=== PATIENT | male | born 1965 | race Caucasian/White ===

== ENCOUNTER 2020-08-02 15:17 | Inpatient (IN) | payer BC ==
[~2020-08-02] VITALS: Ht 193 cm; Wt 132.5 kg
--- NOTE | 2020-08-02 15:29 | NUR ---
PATIENT BIB EMS WITH CHIEF C/O SOB AND BODY ACHES X3 DAYS. PER EMS PATIENT CAMPING WITH FAMILY, FROM [place]. TRANSFER FROM [facility], 12-LEAD NEGATIVE. NO INTERVENTIONS EN ROUTE, VSS. PATIENT CONNECTED TO MONITOR, VSS, AT BEDSIDE, DENIES CHEST PAIN, REPORTS COUGHING UP GREEN PHLEGM THIS MORNING. CALL LIGHT WITHIN REACH.
[2020-08-02] MEDS ORDERED: SODIUM CHLORIDE FLUSH 10ML SYR IVF ONE (15:30)
--- NOTE | 2020-08-02 15:33 | NUR ---
ERMD AT BEDSIDE FOR EVALUATION.
[2020-08-02 15:39] LABS: BASOPHILS % (AUTO) 1 % (0-1); EOSINOPHILS % (AUTO) 3 % (1-7); LYMPHOCYTES % (AUTO) 11 % (22-44); MEAN CORPUSCULAR HGB CONC 33.7 g/dL (33.2-36.2); MEAN PLATELET VOLUME 7.3 fL (7.4-10.4); MONOCYTES % (AUTO) 9 % (2-9); NEUTROPHILS % (AUTO) 76 % (42-75); PLATELET COUNT 250 x10^3/uL (130-400); RED BLOOD COUNT 4.57 x10^6/uL (4.38-5.82); RED CELL DISTRIBUTION WIDTH 13.3 % (9.4-14.8)
[2020-08-02 15:52] LABS: ALANINE AMINOTRANSFERASE 26 U/L (12-78); ALBUMIN 3.2 g/dL (3.4-5.0); ANION GAP 6 mmol/L (5-15); CALCIUM 8.5 mg/dL (8.5-10.1); CHLORIDE 106 mmol/L (98-107); CREATININE 0.92 mg/dL (0.7-1.3)
[2020-08-02 15:56] LABS: ALKALINE PHOSPHATASE 69 U/L (45-117); BILIRUBIN,TOTAL 0.6 mg/dL (0.2-1.0); TOTAL PROTEIN 6.9 g/dL (6.4-8.2); TROPONIN I 0.088 ng/mL (0.000-0.045)
[2020-08-02] MEDS ORDERED: ALBUTEROL SULFATE 2.5 MG/3 ML NPPB ONE (16:00)
[2020-08-02 16:05] LABS: INTERNATIONAL NORMALIZED RATIO 1.02 (0.93-1.1); PROTHROMBIN TIME 10.9 Seconds (9.6-11.5)
[2020-08-02] MEDS ORDERED: ALBUTEROL SULFATE 2.5 MG/3 ML ONE (16:20)
--- NOTE | 2020-08-02 16:25 | NUR ---
BREATHING TREATMENT STARTED.
--- NOTE | 2020-08-02 16:32 | NUR ---
REPORT TO RADHA MOSHER FOR TRANSFER OF PATIENT CARE.
--- NOTE | 2020-08-02 16:49 | NUR ---
PATIENT TRANSFERRED TO CARDIAC TELEMETRY VIA GURNEY IN STABLE CONDITION WITH FENDER MECHANIC APPRENTICE. ALL PATIENT BELONGINGS GATHERED AND TAKEN TO FLOOR WITH PATIENT.
[2020-08-02 17:00] VITALS: BP 164/86
[2020-08-02] MEDS ORDERED: morphine SULFATE 10 MG/ML, 1ML IV PRN (17:00)
[2020-08-02] MEDS ORDERED: NITROGLYCERIN 0.4 MG/SPRAY SL PRN (17:00)
[2020-08-02] MEDS ORDERED: NITROGLYCERIN 0.4 MG BOTTLE (25 TABS) SL PRN ×2 (17:00)
[2020-08-02] MEDS ORDERED: ONDANSETRON ODT 4 MG PO PRN (17:00)
[2020-08-02] MEDS ORDERED: LABETALOL 5MG/ML, 20ML IVPush PRN (17:00)
[2020-08-02] MEDS ORDERED: morphine SULFATE 10 MG/ML, 1ML IVPush PRN (17:00)
[2020-08-02] MEDS ORDERED: KETOROLAC 30 MG/1 ML IV PRN (17:00)
[2020-08-02] MEDS ORDERED: ONDANSETRON 2MG/ML, 2ML IVPush PRN (17:00)
[2020-08-02] MEDS: DOXYCYCLINE 100 MG in DEXTROSE 5% 250 ML IV SCH (17:14)
[2020-08-02] MEDS ORDERED: SIMV20TA19 PO (17:26)
[2020-08-02] MEDS ORDERED: LOSA25TA25 PO (17:26)
[2020-08-02 17:46] LABS: HCT (SEDRATE) 40.2 % (39.2-51.8)
[2020-08-02 18:02] LABS: CHOL/HDL RATIO 2.5; CHOLESTEROL, TOTAL 148 mg/dL (140-239); HDL CHOL % 41 % (26-37); HDL CHOLESTEROL (DIRECT) 60 mg/dL (40-60); LDL CHOLESTEROL,CALCULATED 70 mg/dL (54-169); LDL/HDL RATIO 1.2 (0.5-3.0); TRIGLYCERIDES 88 mg/dL (50-200); TROPONIN I 0.102 ng/mL (0.000-0.045); VLDL CHOLESTEROL 18 mg/dL (0-25)
[2020-08-02] MEDS: LACTATED RINGERS 1,000 ML IV SCH (19:30)
[2020-08-02 21:07] VITALS: BP 127/71
[2020-08-02] MEDS: SODIUM CHLORIDE FLUSH 10ML SYR IVF SCH (21:11)
[2020-08-02 21:21] LABS: TROPONIN I 0.204 ng/mL (0.000-0.045)
[2020-08-03 01:54] VITALS: BP 153/91
[2020-08-03 04:42] LABS: MEAN CORPUSCULAR HGB CONC 35.1 g/dL (33.2-36.2); MEAN PLATELET VOLUME 7.8 fL (7.4-10.4); PLATELET COUNT 217 x10^3/uL (130-400); RED BLOOD COUNT 4.28 x10^6/uL (4.38-5.82); RED CELL DISTRIBUTION WIDTH 13.2 % (9.4-14.8)
[2020-08-03 04:43] LABS: ANION GAP 9 mmol/L (5-15); CALCIUM 8.3 mg/dL (8.5-10.1); CHLORIDE 104 mmol/L (98-107)
[2020-08-03 05:41] LABS: BAND#(MANUAL) 0.11 x10^3/uL; BANDS%(MANUAL) 1 % (0-7); EOS#(MANUAL) 0.32 x10^3/uL (0.0-0.4); EOS% (MANUAL) 3 % (1-7); LYMPH#(MANUAL) 1.38 x10^3/uL (1-3.4); LYMPHS% (MANUAL) 13 % (22-44); MONOS#(MANUAL) 0.42 x10^3/uL (0.3-2.7); MONOS% (MANUAL) 4 % (2-9); REACTIVE LYMPHS # (MANUAL) 0.21 x10^3/uL (0-0); REACTIVE LYMPHS % (MANUAL) 2 % (0-0); SEG#(MANUAL) 8.16 x10^3/uL (1.8-6.8); SEGS% (MANUAL) 77 % (42-75)
[2020-08-03 05:42] LABS: <PLATELET ESTIMATE> ADEQUATE; <PLT MORPHOLOGY> NORMAL PLT MORPH; <RBC MORPHOLOGY> NORMAL
[2020-08-03] MEDS: ASPIRIN 325 MG TABLET EC PO SCH (06:10)
[2020-08-03] MEDS: DOXYCYCLINE 100 MG in DEXTROSE 5% 250 ML IV SCH ×2 (06:10→17:36)
[2020-08-03 06:27] VITALS: BP 144/78
[2020-08-03] MEDS ORDERED: HEPARIN 25,000 UNITS/250ML PMX 250 ML IV PRN (07:30)
[2020-08-03] MEDS ORDERED: HEPARIN 5,000 UNITS/ML, 1ML IV PRN (07:30)
[2020-08-03] MEDS ORDERED: HEPARIN 5,000 UNITS/ML, 1ML IV ONE (07:30)
[2020-08-03 09:35] VITALS: BP 145/78
[2020-08-03] MEDS: SIMVASTATIN 20 MG TABLET PO SCH ×2 (09:36→20:13)
[2020-08-03] MEDS: LOSARTAN 50MG TABLET PO SCH (09:36)
[2020-08-03] MEDS: SODIUM CHLORIDE FLUSH 10ML SYR IVF SCH ×2 (09:37→20:37)
[2020-08-03] MEDS ORDERED: REGADENOSON 0.4 MG/5 ML SYRINGE ONE (10:10)
[2020-08-03] MEDS: ACETAMINOPHEN 325 MG TABLET PO PRN ×2 (11:59→20:13)
[2020-08-03] MEDS: LACTATED RINGERS 1,000 ML IV SCH (13:11)
[2020-08-03] MEDS: KETOROLAC 30 MG/1 ML IV SCH ×2 (15:33→20:25)
[2020-08-03 15:52] VITALS: BP 142/87
[2020-08-03 20:04] VITALS: BP 178/111
[2020-08-03 22:37] VITALS: BP 128/77
[2020-08-03] MEDS: BENZONATATE 100 MG CAPSULE PO PRN (22:41)
[2020-08-04 02:35] VITALS: BP 153/91
[2020-08-04] MEDS: KETOROLAC 30 MG/1 ML IV SCH ×4 (02:39→20:12)
[2020-08-04] MEDS: LACTATED RINGERS 1,000 ML IV SCH (02:39)
[2020-08-04 05:10] LABS: ANION GAP 9 mmol/L (5-15); CALCIUM 8.7 mg/dL (8.5-10.1); CHLORIDE 104 mmol/L (98-107); CREATININE 0.93 mg/dL (0.7-1.3)
[2020-08-04 05:11] LABS: BASOPHILS % (AUTO) 1 % (0-1); EOSINOPHILS % (AUTO) 3 % (1-7); LYMPHOCYTES % (AUTO) 11 % (22-44); MEAN CORPUSCULAR HEMOGLOBIN 29.7 pg (27.5-34.5); MEAN CORPUSCULAR HGB CONC 34.7 g/dL (33.2-36.2); MEAN PLATELET VOLUME 8.8 fL (7.4-10.4); MONOCYTES % (AUTO) 8 % (2-9); NEUTROPHILS % (AUTO) 77 % (42-75); PLATELET COUNT 235 x10^3/uL (130-400); RED BLOOD COUNT 4.04 x10^6/uL (4.38-5.82); RED CELL DISTRIBUTION WIDTH 13.3 % (9.4-14.8)
[2020-08-04] MEDS: DOXYCYCLINE 100 MG in DEXTROSE 5% 250 ML IV SCH ×2 (05:27→17:59)
[2020-08-04] MEDS: ASPIRIN 325 MG TABLET EC PO SCH (05:27)
[2020-08-04 09:15] VITALS: BP 155/83
[2020-08-04] MEDS: BENZONATATE 100 MG CAPSULE PO PRN ×2 (09:16→20:12)
[2020-08-04] MEDS: LOSARTAN 50MG TABLET PO SCH (09:16)
[2020-08-04] MEDS: SODIUM CHLORIDE FLUSH 10ML SYR IVF SCH ×2 (09:16→21:00)
[2020-08-04] MEDS ORDERED: IBUPROFEN 200 MG TABLET PO PRN (10:00)
[2020-08-04] MEDS: ENOXAPARIN 40 MG/0.4 ML SQ SCH (11:34)
[2020-08-04 12:53] VITALS: BP 138/84
[2020-08-04 13:31] LABS: MICROSCOPIC INDICATED
[2020-08-04] MEDS: GUAIFENESIN/DM 200-20MG, 10ML UDC PO PRN (14:44)
[2020-08-04 17:58] VITALS: BP 111/72
[2020-08-04] MEDS: METOPROLOL TARTRATE 25 MG TAB PO SCH (17:59)
[2020-08-04 19:45] VITALS: BP 103/69
[2020-08-04] MEDS: ALUMINUM/MAG/SIMETHICONE 30 ML UDC PO PRN (20:12)
[2020-08-04] MEDS: SIMVASTATIN 20 MG TABLET PO SCH (20:13)
[2020-08-05] MEDS: KETOROLAC 30 MG/1 ML IV SCH ×4 (02:10→20:29)
[2020-08-05 02:15] VITALS: BP 132/79
[2020-08-05] MEDS: DOXYCYCLINE 100 MG in DEXTROSE 5% 250 ML IV SCH (05:14)
[2020-08-05 05:47] VITALS: BP 118/76
[2020-08-05] MEDS: ASPIRIN 81 MG TABLET EC PO SCH (05:47)
[2020-08-05] MEDS: METOPROLOL TARTRATE 25 MG TAB PO SCH (05:48)
[2020-08-05 06:07] LABS: BASOPHILS % (AUTO) 1 % (0-1); EOSINOPHILS % (AUTO) 5 % (1-7); LYMPHOCYTES % (AUTO) 14 % (22-44); MEAN CORPUSCULAR HEMOGLOBIN 29.3 pg (27.5-34.5); MEAN PLATELET VOLUME 8.4 fL (7.4-10.4); MONOCYTES % (AUTO) 9 % (2-9); NEUTROPHILS % (AUTO) 71 % (42-75); PLATELET COUNT 235 x10^3/uL (130-400); RED BLOOD COUNT 3.89 x10^6/uL (4.38-5.82); RED CELL DISTRIBUTION WIDTH 13.2 % (9.4-14.8)
[2020-08-05 06:35] LABS: ALBUMIN 2.4 g/dL (3.4-5.0); ANION GAP 9 mmol/L (5-15); CALCIUM 8.1 mg/dL (8.5-10.1); CHLORIDE 101 mmol/L (98-107)
[2020-08-05 06:39] LABS: ALANINE AMINOTRANSFERASE 291 U/L (12-78); ALKALINE PHOSPHATASE 162 U/L (45-117); BILIRUBIN,TOTAL 0.7 mg/dL (0.2-1.0); CREATININE 0.83 mg/dL (0.7-1.3); TOTAL PROTEIN 6.2 g/dL (6.4-8.2)
[2020-08-05 06:54] VITALS: BP 123/81
[2020-08-05] MEDS ORDERED: POTASSIUM CHLORIDE 20 MEQ TAB.ER.PRT PO ONE (07:30)
[2020-08-05] MEDS ORDERED: ALBUTEROL HFA 90 MCG/SPRAY INH PRN (08:30)
[2020-08-05] MEDS: INDOMETHACIN ER 75 MG CAPSULE PO SCH (08:47)
[2020-08-05] MEDS: LOSARTAN 50MG TABLET PO SCH (08:48)
[2020-08-05] MEDS: SODIUM CHLORIDE FLUSH 10ML SYR IVF SCH ×2 (08:48→20:34)
[2020-08-05] MEDS ORDERED: ALBUTEROL SULFATE 2.5 MG/3 ML NPPB PRN (09:00)
[2020-08-05] MEDS ORDERED: POTASSIUM CHLORIDE 40 MEQ in SODIUM CHLORIDE 0.9% 500 ML IV ONE (09:00)
[2020-08-05] MEDS: ENOXAPARIN 40 MG/0.4 ML SQ SCH (11:00)
[2020-08-05 12:35] VITALS: BP 145/86
[2020-08-05] MEDS ORDERED: METOPROLOL SUCCINATE 25 MG TAB.ER.24H PO SCH (18:00)
[2020-08-05 18:02] VITALS: BP 151/90
[2020-08-05 20:03] VITALS: BP 134/84
[2020-08-05] MEDS: SIMVASTATIN 20 MG TABLET PO SCH (20:29)
[2020-08-05] MEDS: DOXYCYCLINE 100MG TABLET PO SCH (20:29)
[2020-08-05] MEDS: ALUMINUM/MAG/SIMETHICONE 30 ML UDC PO PRN (20:31)
[2020-08-06 00:14] VITALS: BP 148/96
[2020-08-06] MEDS: BENZONATATE 100 MG CAPSULE PO PRN (02:12)
[2020-08-06] MEDS: KETOROLAC 30 MG/1 ML IV SCH ×2 (02:13→08:08)
[2020-08-06 04:42] LABS: BASOPHILS % (AUTO) 1 % (0-1); EOSINOPHILS % (AUTO) 5 % (1-7); LYMPHOCYTES % (AUTO) 11 % (22-44); MEAN CORPUSCULAR HEMOGLOBIN 29.5 pg (27.5-34.5); MEAN CORPUSCULAR HGB CONC 34.5 g/dL (33.2-36.2); MEAN PLATELET VOLUME 7.6 fL (7.4-10.4); MONOCYTES % (AUTO) 9 % (2-9); NEUTROPHILS % (AUTO) 74 % (42-75); PLATELET COUNT 290 x10^3/uL (130-400); RED BLOOD COUNT 4.24 x10^6/uL (4.38-5.82); RED CELL DISTRIBUTION WIDTH 13.4 % (9.4-14.8)
[2020-08-06 04:54] LABS: ALANINE AMINOTRANSFERASE 250 U/L (12-78); ALBUMIN 2.4 g/dL (3.4-5.0); ANION GAP 7 mmol/L (5-15); CALCIUM 8.4 mg/dL (8.5-10.1); CHLORIDE 105 mmol/L (98-107); CREATININE 0.88 mg/dL (0.7-1.3)
[2020-08-06 04:56] LABS: ALKALINE PHOSPHATASE 183 U/L (45-117); BILIRUBIN,TOTAL 0.5 mg/dL (0.2-1.0); TOTAL PROTEIN 6.6 g/dL (6.4-8.2)
[2020-08-06] MEDS: ASPIRIN 81 MG TABLET EC PO SCH (05:26)
[2020-08-06 06:58] VITALS: BP 142/88
[2020-08-06] MEDS: INDOMETHACIN ER 75 MG CAPSULE PO SCH (08:07)
[2020-08-06] MEDS: DOXYCYCLINE 100MG TABLET PO SCH (08:08)
[2020-08-06] MEDS: SODIUM CHLORIDE FLUSH 10ML SYR IVF SCH (08:08)
[2020-08-06] MEDS: LOSARTAN 50MG TABLET PO SCH (08:08)
[2020-08-06] MEDS ORDERED: ALBUTEROL HFA 90 MCG/SPRAY INH PRN (08:30)
[2020-08-06] MEDS: GUAIFENESIN/DM 200-20MG, 10ML UDC PO PRN (09:00)
[2020-08-06] MEDS: ENOXAPARIN 40 MG/0.4 ML SQ SCH (11:22)
[2020-08-06] MEDS ORDERED: INDO75CA3 PO (11:29)
[2020-08-06] MEDS ORDERED: METO25TA91 PO (11:29)
[2020-08-06] MEDS ORDERED: ALBU18HF INH (11:29)
[2020-08-06 12:39] VITALS: BP 134/87
== END 2020-08-06 13:55 | disposition home or self-care (01) | DRG 280 ==
LOC: ED 15:30 → INTOOBSV 15:39 → EDIP 15:39 → 5SO 16:52 → OBSVTOIN 08-03 09:01
PROVIDERS: ADMIT Family Medicine; ATTEND Internal Medicine
DX: I31.9 Disease of pericardium, unspecified (principal); I40.0 Infective myocarditis; I21.A1 Myocardial infarction type 2; B97.89 Other viral agents as the cause of diseases classified elsewhere; E66.9 Obesity, unspecified; T50.B95A Adverse effect of other viral vaccines, initial encounter; Y92.89 Other specified places as the place of occurrence of the external cause; Z68.35 Body mass index [BMI] 35.0-35.9, adult; E78.5 Hyperlipidemia, unspecified; I11.9 Hypertensive heart disease without heart failure; I44.7 Left bundle-branch block, unspecified; Z20.822 Contact with and (suspected) exposure to COVID-19; Z87.891 Personal history of nicotine dependence; J98.01 Acute bronchospasm
CPT/HCPCS: 36415; 93017; 99285; J7613; 71045; 71275; 78452; 80048; 80053; 80061; 81001; 83735; 83880; 84100; 84484; 85025; 85610; 85651; 85730; 86140; 87040; 93005; 93306; G0378; J1650; J1885; J2785; J7060; A9502; J2270; J7120